=== PATIENT | female | born 1970 | race Caucasian/White ===

== ENCOUNTER → 2016-12-07 | Outpatient (CLI) | payer BC ==
[~2016-12-07] MED LIST: DESYREL PO; FLEXERIL PO; MACROBID100 MG PO; MEDROL 4MG DOSPA4 MG PO; NORCO 325 MG-51 TAB PO; PERCOCET 325 MG1 TA2 PO; PERCOCET 325 MG1 TAB PO; PERCOCET 5/321 UDTAB PO; PREMARIN PO; PYRIDIUM 100MG100 MG PO; SKELAXIN800 MG PO; VICODIN 5/5001 UDTAB PO; XANAX1 MG PO
== END ==
LOC: COL.RAD 13:03
DX: M25.551 Pain in right hip (principal)
CPT/HCPCS: Q9967

== ENCOUNTER → 2017-12-28 | Outpatient (CLI) | payer BC | LOC: COL.RAD 09:15 | DX: M25.551 Pain in right hip (principal) | CPT/HCPCS: A9585; J3301; Q9967 ==

== ENCOUNTER → 2018-02-09 | Outpatient (CLI) | payer BC | LOC: COL.LAB 09:33 | DX: Z01.812 Encounter for preprocedural laboratory examination (principal) ==

== ENCOUNTER → 2020-04-01 | Outpatient (CLI) | payer BC | LOC: MC.RAD 14:15 | DX: Z12.31 Encounter for screening mammogram for malignant neoplasm of breast (principal); N63.20 Unspecified lump in the left breast, unspecified quadrant ==

== ENCOUNTER → 2023-07-11 | Outpatient (CLI) | payer OTHER | LOC: MC.RAD 07:53 | DX: N63.13 Unspecified lump in the right breast, lower outer quadrant (principal) ==

== ENCOUNTER 2023-11-15 13:00 | Outpatient (RCR) | payer OTHER ==
[2023-11-15] VITALS (10 sets, daily range): BP systolic 100–125; BP diastolic 60–75; PULSE 91–108; TEMP 98–98.7
[~2023-11-15] VITALS: Ht 165.1 cm; Wt 77.0 kg
[~2023-11-15 13:00] MED LIST changes: +ALOXII IV; +ANTI-DIARRHEAL2 MG PO; +BENADRYL25 M2 PO; +CLARITIN REDITA10 MG; +COLACE 100100 MG/CAP PO; +CYCLOPHOSPHAMIDE; +DECADRON 4MG TAB4 MG PO; +DESYREL DIVIDO150 M1 PO; +DEXAMETHASON10 MG/ML IV; +DILAUDID 2MG TAB2 MG PO; +DILAUDID 4MG TAB4 MG PO; +DIPROLENE AF GEL15GM TP; +DULCOLAX TAB5 MG PO; +EMEND 150M150 MG/VIA IV; +FIRST-MOUTHWASH1 KIT PO; +LEVAQUIN 750MG750 M1 PO; +PROTONIX 40MG T40 MG PO; +SENNA-LAX8.6 MG PO; +TOPROL XL 50MG50 MG PO; +XANAX 1MG1 MG PO; +ZOFRAN ODT8 MG PO; +ZOVIRAX400 MG PO; +[UNRECOGNIZED DRUG - CODE] IV
[2023-11-15] MEDS ORDERED: diphenhydrAMINE 25 MG CAP PO SCH (13:45)
[2023-11-15] MEDS ORDERED: Acetaminophen 325 MG TAB PO SCH (13:45)
[2023-11-15] MEDS ORDERED: NS 250 ML IV SCH (13:45)
[2023-11-15] MEDS ORDERED: LEVAQUIN 5500 MG/TA1 PO (15:42)
--- NOTE | 2023-11-15 19:10 | NUR ---
BLOOD INFUSION COMPLETED, PT HAS NO C/O, WILL DISCHARGE VIA W/C WITH TO CAR
== END 2023-11-15 19:15 | disposition home or self-care (01) ==
LOC: EUO 13:00
DX: C50.111 Malignant neoplasm of central portion of right female breast (principal)
CPT/HCPCS: J1644; J7050; P9040